=== PATIENT | male | born 1940 | race African-American/Black ===

== ENCOUNTER 2020-05-16 12:46 | Inpatient (IN) | payer MEDICARE ==
[2020-05-16 14:23] LABS: BASOPHIL 0.4 % (0-2); EOSINOPHIL 0.3 % (0-7); HCT 35.8 % (42.0-52.0); HGB 11.5 g/dl (13.2-18.0); LYMPHOCYTE 30.4 % (15-48); MCH 26.3 pg (25.0-31.0); MCHC 32.1 g/dL (32.0-36.0); MCV 81.9 fL (78.0-100.0); MONOCYTE 7.3 % (0-12); MPV 12.4 fL (6.0-9.5); NEUTROPHIL 61.2 % (41-80); NRBC 0; PLT 214 K/uL (150-400); RBC 4.37 M/uL (4.70-6.00); RDW 15.9 % (11.5-14.0)
[2020-05-16 14:42] LABS: LACTIC ACID 2.4 mmol/L (0.4-1.9)
[2020-05-16 14:47] LABS: ALBUMIN 3.4 g/dL (3.4-5.0); BILIRUBIN - TOTAL 0.8 mg/dL (0.2-1.0); BUN/CREAT RATIO (CALC) 16.8 RATIO; CREATININE 1.84 mg/dL (0.67-1.17); GLOBULIN (CALCULATION) 5.7 g/dL; POTASSIUM 3.7 mmol/L (3.5-5.1); TOTAL PROTEIN 9.1 g/dL (6.4-8.2)
[2020-05-16 16:16] LABS: BACTERIA TRACE; BILIRUBIN NEGATIVE (NEGATIVE); BLOOD 2+ Ery/uL (NEGATIVE); CLARITY CLEAR (CLEAR); COLOR YELLOW (YELLOW); GLUCOSE (U) NORMAL (NORMAL); LEUKOCYTES NEGATIVE Leu/uL (NEGATIVE); NITRITE NEGATIVE (NEGATIVE); PROTEIN 2+ mg/dL (NEGATIVE); SPECIFIC GRAVITY >=1.030 (1.001-1.030); UROBILINOGEN 0.2 mg/dL (0.2-1.0); pH 5.5 (5.0-9.0)
[2020-05-16] MEDS ORDERED: HCTZ25 MG PO (17:07)
[2020-05-16] MEDS ORDERED: FLEXERIL5 MG PO (17:08)
[2020-05-16] MEDS ORDERED: ZESTORETIC 20-1 EAC1 PO (17:09)
[2020-05-16 18:06] LABS: MAGNESIUM 1.9 mg/dL (1.8-2.4); PHOSPHORUS 4.3 mg/dL (2.6-4.7)
[2020-05-16 18:45] LABS: BILIRUBIN NEGATIVE (NEGATIVE); BLOOD 3+ Ery/uL (NEGATIVE); CLARITY HAZY (CLEAR); COLOR YELLOW (YELLOW); GLUCOSE (U) NORMAL (NORMAL); LEUKOCYTES NEGATIVE Leu/uL (NEGATIVE); NITRITE NEGATIVE (NEGATIVE); PROTEIN 2+ mg/dL (NEGATIVE); SPECIFIC GRAVITY >=1.030 (1.001-1.030); UROBILINOGEN 0.2 mg/dL (0.2-1.0); pH 5.5 (5.0-9.0)
[2020-05-16 18:48] LABS: SQUAMOUS EPITHELIAL CELLS RARE; URINARY RBC TNTC
[2020-05-16 19:02] LABS: FT4 (FREE T4) 1.2 ng/dL (0.76-1.46)
[2020-05-16 20:56] LABS: BUN/CREAT RATIO (CALC) 21.2 RATIO; CREATININE 1.46 mg/dL (0.67-1.17); POTASSIUM 3.8 mmol/L (3.5-5.1)
[2020-05-17 05:35] LABS: BASOPHIL 0.1 % (0-2); EOSINOPHIL 1.2 % (0-7); HGB 10.9 g/dl (13.2-18.0); MCH 26.7 pg (25.0-31.0); MCHC 32.1 g/dL (32.0-36.0); MCV 83.3 fL (78.0-100.0); MONOCYTE 7.2 % (0-12); MPV 11.9 fL (6.0-9.5); NEUTROPHIL 62.4 % (41-80); NRBC 0; PLT 188 K/uL (150-400); RBC 4.08 M/uL (4.70-6.00); RDW 16.2 % (11.5-14.0); WBC 6.9 K/uL (4.0-10.5)
[2020-05-17 06:35] LABS: ALBUMIN 2.8 g/dL (3.4-5.0); BILIRUBIN - TOTAL 0.6 mg/dL (0.2-1.0); BUN/CREAT RATIO (CALC) 21.6 RATIO; CREATININE 1.25 mg/dL (0.67-1.17); GLOBULIN (CALCULATION) 5.4 g/dL; POTASSIUM 3.8 mmol/L (3.5-5.1); TOTAL PROTEIN 8.2 g/dL (6.4-8.2)
[2020-05-17 09:46] LABS: RETICULOCYTE COUNT 1.3 % (1.0-2.0)
[2020-05-17 10:56] LABS: IRON % SATURATION 26.4 %SAT (20-50)
[2020-05-17 11:34] LABS: C-REACTIVE PROTEIN 9.4 mg/dL (<=0.90); FOLIC ACID (SERUM) 10.4 ng/mL (8.6-58.9); FT4 (FREE T4) 1.2 ng/dL (0.76-1.46); MAGNESIUM 1.8 mg/dL (1.8-2.4); VITAMIN D (25-OH) 32.2 ng/mL (30.0-100.0)
[2020-05-18 06:24] LABS: BASOPHIL 0.1 % (0-2); EOSINOPHIL 0 % (0-7); HCT 30.7 % (42.0-52.0); HGB 9.8 g/dl (13.2-18.0); LYMPHOCYTE 15.6 % (15-48); MCH 26.4 pg (25.0-31.0); MCHC 31.9 g/dL (32.0-36.0); MCV 82.7 fL (78.0-100.0); MONOCYTE 6.3 % (0-12); MPV 12.6 fL (6.0-9.5); NEUTROPHIL 77.6 % (41-80); NRBC 0; PLT 152 K/uL (150-400); RBC 3.71 M/uL (4.70-6.00); WBC 7.6 K/uL (4.0-10.5)
[2020-05-18 06:46] LABS: ALBUMIN 2.5 g/dL (3.4-5.0); BILIRUBIN - TOTAL 0.5 mg/dL (0.2-1.0); CREATININE 0.95 mg/dL (0.67-1.17); GLOBULIN (CALCULATION) 4.6 g/dL; MAGNESIUM 1.6 mg/dL (1.8-2.4); PHOSPHORUS 2.7 mg/dL (2.6-4.7); POTASSIUM 3.7 mmol/L (3.5-5.1); TOTAL PROTEIN 7.1 g/dL (6.4-8.2)
[2020-05-18 07:04] LABS: TOTAL CELL COUNT 100
[2020-05-18 07:07] LABS: LYMPHOCYTE(M) 15 % (15-48); MONOCYTE(M) 4 % (0-12); NEUTROPHILS(M) 81 % (41-80)
[2020-05-18 07:08] LABS: PLATELET ESTIMATE NORMAL; PLATELET MORPHOLOGY NORMAL
[2020-05-19 06:19] LABS: BASOPHIL 0.1 % (0-2); EOSINOPHIL 0 % (0-7); HCT 30.4 % (42.0-52.0); HGB 9.7 g/dl (13.2-18.0); LYMPHOCYTE 10.9 % (15-48); MCH 26.4 pg (25.0-31.0); MCHC 31.9 g/dL (32.0-36.0); MCV 82.6 fL (78.0-100.0); MONOCYTE 6.7 % (0-12); MPV 12.1 fL (6.0-9.5); NEUTROPHIL 81.8 % (41-80); NRBC 0; PLT 148 K/uL (150-400); RBC 3.68 M/uL (4.70-6.00); WBC 8.1 K/uL (4.0-10.5)
[2020-05-19 06:46] LABS: ALBUMIN 2.6 g/dL (3.4-5.0); BILIRUBIN - TOTAL 0.5 mg/dL (0.2-1.0); BUN/CREAT RATIO (CALC) 22.6 RATIO; C-REACTIVE PROTEIN 7.7 mg/dL (<=0.90); CREATININE 0.93 mg/dL (0.67-1.17); GLOBULIN (CALCULATION) 4.4 g/dL; POTASSIUM 3.4 mmol/L (3.5-5.1)
--- NOTE | 2020-05-19 14:52 | NUR ---
Nurse asked me to check on patient with an emphasis on the family. Said he had been confused and agitated at times. When I entered room the patient was calm and resting. The two visitors said they had no needs at this time and thanked me for checking on them. Nurse had identified them as and granddaughter.
[2020-05-20 06:17] LABS: BASOPHIL 0 % (0-2); EOSINOPHIL 0 % (0-7); HCT 27.9 % (42.0-52.0); HGB 8.9 g/dl (13.2-18.0); LYMPHOCYTE 14.1 % (15-48); MCH 26.3 pg (25.0-31.0); MCHC 31.9 g/dL (32.0-36.0); MCV 82.5 fL (78.0-100.0); MONOCYTE 7.5 % (0-12); MPV 12.7 fL (6.0-9.5); NEUTROPHIL 78.3 % (41-80); NRBC 0; PLT 146 K/uL (150-400); RBC 3.38 M/uL (4.70-6.00); RDW 15.9 % (11.5-14.0); WBC 6.7 K/uL (4.0-10.5)
[2020-05-20 06:44] LABS: ALBUMIN 2.3 g/dL (3.4-5.0); BILIRUBIN - TOTAL 0.5 mg/dL (0.2-1.0); BUN/CREAT RATIO (CALC) 22.7 RATIO; CREATININE 0.88 mg/dL (0.67-1.17); PHOSPHORUS 1.8 mg/dL (2.6-4.7); POTASSIUM 3.3 mmol/L (3.5-5.1); TOTAL PROTEIN 6.3 g/dL (6.4-8.2)
--- NOTE | 2020-05-20 07:42 | NUR ---
(LATE ENTRY ON 05/17/20 AT 1645) REPORTS THAT THE PATIENT COMPLIANTS OF NOT BEING ABLE TO MOVING HIS LEFT ARM AND INCREASED CONFUSION. ALSO WANTS TO GET UP TO THE BSC. LEFT ARM IS WARM AND PINK, POSTIVE PULSE. ABLE TO MOVE FINGERS AND THE WRIST BUT UNABLE TO LIFT IT UP OFF THE BED WITHOUT HELP. DR. CANALES NOTIFED AND NEW ORDERS FOR A CT OF THE HEAD AND NEW XRAY OF THE LEFT ARM AND SHOULDER. (LATE ENTRY ON 05/17/20 AT 1700) WHILE GETTING UP TO THE BSC HEARD 2 POPS TO THE LEFT SHOULDER AND PATIENT COMPLIANTS THAT IT HURT. NOTIFED DR. CANALES OF THIS. NEW ORDERS TO PLACE THE ARM IN A SLING AND GET THE XRAYS DONE.
--- NOTE | 2020-05-20 18:40 | NUR ---
TALKED TO DR. MORGAN AND SAID NOT TO DO PT OR OT UNTIL TOMORROW WHEN REE-EVAL PT
[2020-05-21 06:50] LABS: HCT 33.7 % (42.0-52.0); HGB 10.3 g/dl (13.2-18.0); MCH 26.7 pg (25.0-31.0); MCHC 30.6 g/dL (32.0-36.0); MCV 87.3 fL (78.0-100.0); RBC 3.86 M/uL (4.70-6.00); RDW 17.3 % (11.5-14.0); WBC 6.1 K/uL (4.0-10.5)
[2020-05-21 06:54] LABS: BUN/CREAT RATIO (CALC) 20.5 RATIO; CREATININE 0.88 mg/dL (0.67-1.17)
[2020-05-21 07:03] LABS: PLT 122 K/uL (150-400)
--- NOTE | 2020-05-21 09:36 | NUR ---
FAMILY REQUESTING TRANSFER TO [facility]. CATHY QUINTERO AND PERLA IN TO TALK WITH FAMILY AT THIS TIME. PATIENT RESTING, FAMILY INSTRUCTED DO NOT WAKE AND LET PATIENT REST.
--- NOTE | 2020-05-21 11:14 | NUR ---
PATIENT TO BE TRASNFERRED TO [facility] ROOM 518. WILL CALL REPORT AND TRANSFER. FAMILY IN ROOM AND NOTIFIED
--- NOTE | 2020-05-21 12:14 | NUR ---
05/21 Mr. Ortiz is being transferred to [facility]. This social service coordinator met with Ms. Ortiz and [id number], Ktahi. They were provided with a list of sitter services. - Discussion took place re: TRES. The rw and 3in1 will be returned to [facility]. Ramp was educated re: ramps and gait belt being private pay items. They were provided with the telephone # to [facility]. - [facility] was informed of the transfer.
--- NOTE | 2020-05-21 14:06 | NUR ---
TRANSFER TO [facility] AT 1345 VIA [facility]
[2020-05-21 16:10] LABS: A/G RATIO 0.7 (0.7-1.7); ALBUMIN 3.1 g/dL (2.9-4.4); ALPHA-1-GLOBULIN 0.3 g/dL (0.0-0.4); BETA GLOBULIN 0.9 g/dL (0.7-1.3); GAMMA GLOBULIN 2.9 g/dL (0.4-1.8); GLOBULIN, TOTAL 5.1 g/dL (2.2-3.9); IMMUNOGLOBULIN A, QN, SERUM 2159 mg/dL (61-437); IMMUNOGLOBULIN G, QN, SERUM 789 mg/dL (603-1613); IMMUNOGLOBULIN M, QN, SERUM 21 mg/dL (15-143); M-SPIKE Comment: g/dL (Not Observed); PROTEIN, TOTAL, SERUM 8.2 g/dL (6.0-8.5)
== END 2020-05-21 13:45 | disposition other institution (70) | DRG 840 ==
LOC: FER 12:46 → FMS 16:21
PROVIDERS: Emergency Medicine; Hospitalist; Nurse Practitioner; Radiology Radiation Oncology; ADMIT Internal Medicine
DX: C90.00 Multiple myeloma not having achieved remission (principal); G93.41 Metabolic encephalopathy; C79.51 Secondary malignant neoplasm of bone; N17.9 Acute kidney failure, unspecified; M84.522A Pathological fracture in neoplastic disease, left humerus, initial encounter for fracture; M84.58XA Pathological fracture in neoplastic disease, other specified site, initial encounter for fracture; Z20.822 Contact with and (suspected) exposure to COVID-19; E83.52 Hypercalcemia; D53.9 Nutritional anemia, unspecified; N18.30 Chronic kidney disease, stage 3 unspecified; I12.9 Hypertensive chronic kidney disease with stage 1 through stage 4 chronic kidney disease, or unspecified chronic kidney disease; K59.00 Constipation, unspecified; T38.0X5A Adverse effect of glucocorticoids and synthetic analogues, initial encounter; E87.5 Hyperkalemia; Z90.49 Acquired absence of other specified parts of digestive tract; Z87.440 Personal history of urinary (tract) infections
CPT/HCPCS: 36415; 70450; 71045; 71260; 72131; 72141; 72146; 72148; 73200; 80048; 80053; 80061; 81001; 82232; 82306; 82607; 82668; 82728; 82746; 82784; 83540; 83550; 83605; 83615; 83735; 83880; 83883; 84100; 84145; 84153; 84155; 84165; 84439; 84443; 85025; 86140; 86335; 86880; 87040; 87088; 94010; 97162; 97166; 97530-GP; 97535; J0630; J1100; J1200; J1650; J2060; J2270; J2405; J2916; J3360; J3410; J3475; J3480; J3486; J3489; J7030; Q9967; U0002

== ENCOUNTER 2020-11-06 15:30 | Inpatient (IN) | payer MEDICARE ==
[~2020-11-06] VITALS: Ht 185.4 cm; Wt 153.8 kg
[~2020-11-06 15:30] MED LIST: FLEXERIL5 MG PO; HCTZ25 MG PO; ZESTORETIC 20-1 EAC1 PO
[2020-11-06 16:51] LABS: INR 1.61 (0.9-1.2); PROTHROMBIN TIME 18.4 SECONDS (11.8-13.4); PTT 41.5 SECONDS (24.4-34.7)
[2020-11-06 16:52] LABS: ALBUMIN 2.9 g/dL (3.4-5.0); BILIRUBIN - TOTAL 1.5 mg/dL (0.2-1.0); BUN/CREAT RATIO (CALC) 16.3 RATIO; CREATININE 0.86 mg/dL (0.67-1.17); GLOBULIN (CALCULATION) 5.4 g/dL; POTASSIUM 3.9 mmol/L (3.5-5.1); TOTAL PROTEIN 8.3 g/dL (6.4-8.2)
[2020-11-06 16:53] LABS: BASOPHIL 0.6 % (0-2); HCT 33.6 % (42.0-52.0); HGB 10.6 g/dl (13.2-18.0); LYMPHOCYTE 21.2 % (15-48); MCH 24.5 pg (25.0-31.0); MCHC 31.5 g/dL (32.0-36.0); MCV 77.6 fL (78.0-100.0); MONOCYTE 10.4 % (0-12); NEUTROPHIL 65.4 % (41-80); NRBC 0; PLT 136 K/uL (150-400); RBC 4.33 M/uL (4.70-6.00); RDW 21.9 % (11.5-14.0)
[2020-11-06 16:57] LABS: PRO-BNP 18107 pg/mL (<450)
[2020-11-06 19:15] LABS: BILIRUBIN NEGATIVE (NEGATIVE); BLOOD 1+ Ery/uL (NEGATIVE); CLARITY CLEAR (CLEAR); COLOR YELLOW (YELLOW); GLUCOSE (U) NORMAL (NORMAL); LEUKOCYTES NEGATIVE Leu/uL (NEGATIVE); NITRITE NEGATIVE (NEGATIVE); PROTEIN NEGATIVE (NEGATIVE); SPECIFIC GRAVITY 1.015 (1.001-1.030)
[2020-11-06 19:30] LABS: BACTERIA TRACE
[2020-11-06] MEDS ORDERED: FLOMAX0.4 MG PO (20:56)
[2020-11-06] MEDS ORDERED: ZESTRIL5 MG PO (20:57)
[2020-11-06] MEDS ORDERED: IRON325 M1 PO (20:57)
[2020-11-06] MEDS ORDERED: TOPROL XL 25MG25 MG PO (20:58)
[2020-11-06] MEDS ORDERED: CEFDINIR300 M1 PO (20:58)
[2020-11-06] MEDS ORDERED: KIDS VITAMIN D10 MCG PO (21:00)
[2020-11-06] MEDS ORDERED: LASIX20 MG PO (21:00)
[2020-11-07 07:04] LABS: BASOPHIL 0.5 % (0-2); HCT 32.3 % (42.0-52.0); HGB 10.2 g/dl (13.2-18.0); LYMPHOCYTE 21.2 % (15-48); MCH 24.6 pg (25.0-31.0); MCHC 31.6 g/dL (32.0-36.0); NEUTROPHIL 67.1 % (41-80); NRBC 0; PLT 124 K/uL (150-400); RBC 4.14 M/uL (4.70-6.00); RDW 21.8 % (11.5-14.0); WBC 4.4 K/uL (4.0-10.5)
[2020-11-07 07:29] LABS: ALBUMIN 2.9 g/dL (3.4-5.0); BILIRUBIN - TOTAL 1.5 mg/dL (0.2-1.0); BUN/CREAT RATIO (CALC) 16.1 RATIO; CREATININE 0.93 mg/dL (0.67-1.17); GLOBULIN (CALCULATION) 5.2 g/dL; POTASSIUM 3.3 mmol/L (3.5-5.1); TOTAL PROTEIN 8.1 g/dL (6.4-8.2)
--- NOTE | 2020-11-07 10:28 | NUR ---
11/07/20 Mr. Ortiz lives at home with his spouse. They have 4 children. They children have been staying at night and comining in and out of the home throughout the day to assist Ms. Ortiz. - Mr. Ortiz has a rw, 3in1, s. chair, and lift chair. They have had [facility] in the past and would like the services resumed. [facility] is on diversion. - Ms. 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 [facility] is also on diversion. A referral was made to [facility]; awaiting response. - [facility], FORESTRY CONTRACTOR, also makes houe calls to the home. This does not replace their PCP, Ysabel Pinto.
[2020-11-07 14:37] LABS: BUN/CREAT RATIO (CALC) 15.8 RATIO; CREATININE 0.95 mg/dL (0.67-1.17); POTASSIUM 3.5 mmol/L (3.5-5.1)
[2020-11-08 07:35] LABS: BASOPHIL 0.5 % (0-2); EOSINOPHIL 1.9 % (0-7); HCT 32.7 % (42.0-52.0); HGB 10.1 g/dl (13.2-18.0); LYMPHOCYTE 20.7 % (15-48); MCH 24.3 pg (25.0-31.0); MCHC 30.9 g/dL (32.0-36.0); MCV 78.6 fL (78.0-100.0); MONOCYTE 9.6 % (0-12); NEUTROPHIL 66.8 % (41-80); NRBC 0; PLT 121 K/uL (150-400); RBC 4.16 M/uL (4.70-6.00); RDW 22.1 % (11.5-14.0); WBC 4.3 K/uL (4.0-10.5)
[2020-11-08 08:13] LABS: ALBUMIN 2.8 g/dL (3.4-5.0); BILIRUBIN - TOTAL 1.5 mg/dL (0.2-1.0); CREATININE 1.01 mg/dL (0.67-1.17); GLOBULIN (CALCULATION) 5.2 g/dL; POTASSIUM 3.5 mmol/L (3.5-5.1)
[2020-11-08 08:14] LABS: MAGNESIUM 2.1 mg/dL (1.8-2.4)
--- NOTE | 2020-11-08 11:27 | NUR ---
11/08/20 Discharge options were discussed with Ms. Ortiz; HH vs SNF. She wishes for Mr. Ortiz to return home with HH. [facility] will accept patient. However, they will not see Mr. Ortiz until Wednesday. - Ms. Ortiz was provided wit a list of sitter services. - Please call Ember at [phone] id patient discharges over the weekend. - Please monitor for 02 needs.
[2020-11-09 05:04] LABS: BASOPHIL 0.7 % (0-2); EOSINOPHIL 1.9 % (0-7); HCT 32.8 % (42.0-52.0); HGB 10.1 g/dl (13.2-18.0); LYMPHOCYTE 23.9 % (15-48); MCH 24.1 pg (25.0-31.0); MCHC 30.8 g/dL (32.0-36.0); MCV 78.3 fL (78.0-100.0); MONOCYTE 9.5 % (0-12); NEUTROPHIL 63.8 % (41-80); NRBC 0; PLT 123 K/uL (150-400); RBC 4.19 M/uL (4.70-6.00); WBC 4.3 K/uL (4.0-10.5)
[2020-11-09 05:07] LABS: MPV 10.3 fL (6.0-9.5)
[2020-11-09 05:13] LABS: ALBUMIN 2.8 g/dL (3.4-5.0); BILIRUBIN - TOTAL 1.5 mg/dL (0.2-1.0); BUN/CREAT RATIO (CALC) 12.7 RATIO; CREATININE 1.1 mg/dL (0.67-1.17); GLOBULIN (CALCULATION) 5.1 g/dL; MAGNESIUM 1.9 mg/dL (1.8-2.4); POTASSIUM 3.7 mmol/L (3.5-5.1); TOTAL PROTEIN 7.9 g/dL (6.4-8.2)
--- NOTE | 2020-11-09 10:42 | NUR ---
Please notify [facility] if pt is DC over weekend,
[2020-11-10 05:56] LABS: BASOPHIL 0.5 % (0-2); EOSINOPHIL 1.7 % (0-7); HCT 34.7 % (42.0-52.0); HGB 10.7 g/dl (13.2-18.0); LYMPHOCYTE 24.2 % (15-48); MCHC 30.8 g/dL (32.0-36.0); MONOCYTE 10.5 % (0-12); NEUTROPHIL 62.9 % (41-80); NRBC 0; PLT 127 K/uL (150-400); RBC 4.45 M/uL (4.70-6.00)
[2020-11-10 06:05] LABS: BUN/CREAT RATIO (CALC) 12.8 RATIO; CREATININE 1.09 mg/dL (0.67-1.17); POTASSIUM 3.6 mmol/L (3.5-5.1)
[2020-11-10] MEDS ORDERED: BUMETANIDE1 MG PO (13:13)
[2020-11-10] MEDS ORDERED: CARVEDILOL12.5 MG PO (13:13)
[2020-11-10] MEDS ORDERED: K-DUR20 MEQ PO (13:13)
[2020-11-10] MEDS ORDERED: HYDRALAZINE25 MG PO (13:13)
--- NOTE | 2020-11-10 16:20 | NUR ---
[id number] FROM [facility] WAS NOTIFED OF THE DISCAHRGE HOME TODAY.
== END 2020-11-10 15:59 | disposition home health service (06) | DRG 291 ==
LOC: FER 15:30 → FMS 18:10
PROVIDERS: Emergency Medicine; Family Medicine; Internal Medicine Cardiovascular Disease; Nurse Practitioner; ADMIT Internal Medicine
DX: I11.0 Hypertensive heart disease with heart failure (principal); J96.01 Acute respiratory failure with hypoxia; I50.23 Acute on chronic systolic (congestive) heart failure; E87.6 Hypokalemia; E66.01 Morbid (severe) obesity due to excess calories; Z20.822 Contact with and (suspected) exposure to COVID-19; E83.42 Hypomagnesemia; N40.0 Benign prostatic hyperplasia without lower urinary tract symptoms; I27.20 Pulmonary hypertension, unspecified; F17.290 Nicotine dependence, other tobacco product, uncomplicated; Z85.79 Personal history of other malignant neoplasms of lymphoid, hematopoietic and related tissues; Z86.73 Personal history of transient ischemic attack (TIA), and cerebral infarction without residual deficits; Z87.440 Personal history of urinary (tract) infections; Z90.49 Acquired absence of other specified parts of digestive tract; Z98.890 Other specified postprocedural states; Z79.899 Other long term (current) drug therapy; Z68.33 Body mass index [BMI] 33.0-33.9, adult
CPT/HCPCS: 36415; 36600; 71045; 80048; 80053; 81001; 82803; 83735; 83880; 84484; 85025; 85610; 85730; 93005; 94667; 94668; 97162; 97166; 97530; 97530-GP; 97535; J1650; J1940; U0002